=== PATIENT | male | born 1975 | race Two or more races ===

== ENCOUNTER 2020-12-28 13:27 | Emergency (ER) | payer SELFPAY ==
[~2020-12-28] VITALS: Ht 172.7 cm; Wt 90.9 kg
--- NOTE | 2020-12-28 14:46 | ED.ADGEN ---
General Adult EDM: Chief Complaint: ABDOMINAL PAIN HPI: HPI: Patient is a 45 year old male coming in for right lower quad abdominal pain starting yesterday. Patient states that pain has gotten stronger. Has had some nausea but no vomiting, and no appetite. Not eating since yesterday. Denies any diarrhea constipation. No urinary complaints. Denies any fevers or cough. Review of Systems: Review of Systems: All other systems within normal limits except for as noted in the HPI Current Medications: Current Medications Medications (Trade) Dose Ordered Sig/Swetha Start Time Stop Time Status Last Admin Dose Admin Fentanyl Citrate (Fentanyl 2ml Vial) 75 mcg 1X ONCE 12/28/20 15:00 12/28/20 15:01 DC 12/28/20 15:12 75 MCG Info (CONTRAST GIVEN -- Rx MONITORING) 1 each PRN DAILY PRN 12/28/20 15:15 12/30/20 15:14 Iohexol (Omnipaque 300 Mg/ml) 75 ml 1X ONCE 12/28/20 15:15 12/28/20 15:16 DC 12/28/20 15:22 75 ML Ondansetron HCl (Zofran) 4 mg 1X ONCE 12/28/20 15:00 12/28/20 15:01 DC 12/28/20 15:11 4 MG Allergies: Allergies: Allergies Coded Allergies Type Severity Reaction Last Updated Verified No Known Drug Allergies 12/28/20 No Physical Exam: PE: Constitutional: Well developed, well nourished, no acute distress, non-toxic appearance. [] HENT: Normocephalic, atraumatic, bilateral external ears normal, nose normal. [] Eyes: PERRLA, conjunctiva normal, no discharge. [] Neck: No rigidity, supple, no stridor. [] Cardiovascular: Regular rate and rhythm, brisk cap refill [] Lungs & Thorax: Non labored symmetric respirations, no tachypnea or respiratory distress [] Abdomen: Soft, nondistended. Skin: Warm, dry, no erythema, no rash. [] Back: Unremarkable Extremities: No deformities, range of motion grossly intact, no lower extremity edema [] Neurologic: Alert and oriented X 3, no focal deficits noted. [] Psychologic: Affect normal, judgement normal, mood normal. [] Current Patient Data: Labs: Laboratory Tests Test 12/28/20 13:35 12/28/20 14:55 Urine Collection Type Unknown Urine Color Yellow Urine Clarity Clear Urine pH 5.5 (<5.0-8.0) Urine Specific [place] >=1.030 (1.000-1.030) Urine Protein Negative mg/dL (NEG-TRACE) Urine Glucose (UA) Negative mg/dL (NEG) Urine Ketones (Stick) Negative mg/dL (NEG) Urine Blood Negative (NEG) Urine Nitrite Negative (NEG) Urine Bilirubin Small (NEG) Urine Urobilinogen Dipstick 0.2 mg/dL (0.2 mg/dL) Urine Leukocyte Esterase Negative (NEG) Urine RBC 0 /HPF (0-2) Urine WBC Occ /HPF (0-4) Urine Squamous Epithelial Cells Few /LPF Urine Bacteria Few /HPF (0-FEW) Urine Mucus Marked /LPF White Blood Count 8.3 x10^3/uL (4.0-11.0) Red Blood Count 4.71 x10^6/uL (4.30-5.70) Hemoglobin 15.6 g/dL (13.0-17.5) Hematocrit 45.0 % (39.0-53.0) Mean Corpuscular Volume 96 fL (79-100) Mean Corpuscular Hemoglobin 33 pg (25-35) Mean Corpuscular Hemoglobin Concent 35 g/dL (31-37) Red Cell Distribution Width 13.1 % (11.5-14.5) Platelet Count 220 x10^3/uL (140-400) Neutrophils (%) (Auto) 61 % (31-73) Lymphocytes (%) (Auto) 29 % (24-48) Monocytes (%) (Auto) 9 % (0-9) Eosinophils (%) (Auto) 1 % (0-3) Basophils (%) (Auto) 1 % (0-3) Neutrophils # (Auto) 5.0 x10^3/uL (1.8-7.7) Lymphocytes # (Auto) 2.4 x10^3/uL (1.0-4.8) Monocytes # (Auto) 0.7 x10^3/uL (0.0-1.1) Eosinophils # (Auto) 0.0 x10^3/uL (0.0-0.7) Basophils # (Auto) 0.1 x10^3/uL (0.0-0.2) Sodium Level 143 mmol/L (136-145) Potassium Level 3.7 mmol/L (3.5-5.1) Chloride Level 106 mmol/L (98-107) Carbon Dioxide Level 28 mmol/L (21-32) Anion Gap 9 (6-14) Blood Urea Nitrogen 7 mg/dL (8-26) L Creatinine 0.8 mg/dL (0.7-1.3) Estimated GFR (Cockcroft-Gault) 104.5 BUN/Creatinine Ratio 9 (6-20) Glucose Level 88 mg/dL (70-99) Calcium Level 8.8 mg/dL (8.5-10.1) Total Bilirubin 0.7 mg/dL (0.2-1.0) Aspartate Amino Transferase (AST) 26 U/L (15-37) Alanine Aminotransferase (ALT) 44 U/L (16-63) Alkaline Phosphatase 92 U/L (46-116) Total Protein 7.7 g/dL (6.4-8.2) Albumin 3.8 g/dL (3.4-5.0) Albumin/Globulin Ratio 1.0 (1.0-1.7) Lipase 39 U/L (73-393) L Laboratory Tests 12/28/20 14:55 Laboratory Tests 12/28/20 14:55 Vital Signs: Vital Signs Date Time Temp Pulse Resp B/P (MAP) Pulse Ox O2 Delivery O2 Flow Rate FiO2 12/28/20 15:12 16 96 Room Air 12/28/20 14:25 98.8 71 172/108 (129) 98.8 EKG: EKG: [] Heart Score: C/O Chest Pain: No Risk Factors: Risk Factors: DM, Current or recent (<one month) smoker, HTN, HLP, family history of CAD, obesity. Risk Scores: Score 0 - 3: 2.5% MACE over next 6 weeks - Discharge Home Score 4 - 6: 20.3% MACE over next 6 weeks - Admit for Clinical Observation Score 7 - 10: 72.7% MACE over next 6 weeks - Early Invasive Strategies Radiology/Procedures: Radiology/Procedures: [facility] [address] [place], [place] [id number] IMAGING REPORT Signed PATIENT: KATHE JENKINSACCOUNT: [id number] : 1975 LOCATION: ER AGE: 45 SEX: M EXAM STATUS: REG ER ORD. PHYSICIAN: ELIZABETH HUGHES MD REASON: RLQ pain PROCEDURE: CT ABD PELV W/ IV CONTRST ONLY INDICATION: Reason: RLQ pain / Spl. COMPARISON: None. TECHNIQUE: Axial CT images obtained through the abdomen and pelvis with contrast. One or more of the following individualized dose reduction techniques were utilized for this examination: 1. Automated exposure control; 2. Adjustment of the mA and/or kV according to patient size; 3. Use of iterative reconstruction technique. FINDINGS: Patchy groundglass opacities at lung bases which is commonly from atelectasis. Abdominal aorta is not aneurysmal. No intrahepatic bile duct dilation. Gallbladder is partially contracted. No peripancreatic fluid collection. There is edema to the fat at the left side of the mesentery. Spleen unremarkable. 19 mm exophytic low-density lesion at the left kidney. Subcentimeter low-density lesion of the left kidney which is too small to characterize. No hydronephrosis. Urinary bladder is partially distended with prominence of wall. No periappendiceal inflammatory changes. The appendix is not dilated. No dilated loops of bowel to suggest obstruction. Degenerative changes the spine with disc protrusions and osteophyte formation as well as facet hypertrophy. This contributes to multilevel central canal and neural foraminal stenosis. One year levels is at L4 and L5. IMPRESSION: * No evidence of appendicitis. * No dilated loops of bowel to suggest obstruction. * There is some nonspecific edema within the mesentery on the left. Nonspecific in nature with causes such as mesenteric panniculitis within the differential. * Degenerative changes of the spine with multiple disc protrusions as well as osteophyte formation. Electronically signed by: Desiree Coates MD (12/28/2020 3:53 PM) [id number] DICTATED and SIGNED BY: DESIREE COATES MD DATE: 12/28/20 [id number] [] Course & Med Decision Making: Course & Med Decision Making Pertinent Labs and Imaging studies reviewed. (See chart for details) [] Dragon Disclaimer: Dragclarita Disclaimer: This electronic medical record was generated, in whole or in part, using a voice recognition dictation system. Departure Departure Impression: Primary Impression: Mesenteric panniculitis Disposition: HOME / SELF CARE / HOMELESS Condition: STABLE Referrals: NO PCP (PCP) Patient Instructions: Abdominal Pain, Possible Early Appendicitis Scripts Naproxen (NAPROSYN) 500 Mg Tablet 1 TAB PO BID for 10 Days, #20 TAB Prov: ELIZABETH HUGHES MD 12/28/20 ELIZABETH HUGHES MD Dec 28, 2020 14:46
[2020-12-28 14:57] LABS: BILIRUBIN,URINE SMALL (NEG); CLARITY,URINE CLEAR; COLOR,URINE YELLOW; NITRITE,URINE NEGATIVE (NEG); PH,URINE 5.5 (<5.0-8.0); PROTEIN,URINE NEGATIVE (NEG-TRACE); UROBILINOGEN,URINE 0.2 mg/dL (0.2 mg/dL)
[2020-12-28] MEDS ORDERED: fentaNYL PF VIAL 100 MCG/2 ML VIAL IVP ONE (15:00)
[2020-12-28] MEDS ORDERED: ONDANSETRON PF 4 MG/2 ML VIAL. IVP ONE (15:00)
[2020-12-28 15:05] LABS: BASO # 0.1 x10^3/uL (0.0-0.2); BASO % 1 % (0-3); EOS % 1 % (0-3); HEMOGLOBIN 15.6 g/dL (13.0-17.5); LYMPH # 2.4 x10^3/uL (1.0-4.8); LYMPH % 29 % (24-48); MEAN CORPUSCULAR HEMOGLOBIN 33 pg (25-35); MEAN CORPUSCULAR HGB CONC 35 g/dL (31-37); MEAN CORPUSCULAR VOLUME 96 fL (79-100); MONO # 0.7 x10^3/uL (0.0-1.1); MONO % 9 % (0-9); NEUT % 61 % (31-73); PLATELET COUNT 220 x10^3/uL (140-400); RED BLOOD COUNT 4.71 x10^6/uL (4.30-5.70); RED CELL DISTRIBUTION WIDTH 13.1 % (11.5-14.5); WHITE BLOOD COUNT 8.3 x10^3/uL (4.0-11.0)
[2020-12-28 15:10] LABS: CALCIUM 8.8 mg/dL (8.5-10.1); CREATININE 0.8 mg/dL (0.7-1.3); GFR 104.5; POTASSIUM 3.7 mmol/L (3.5-5.1)
[2020-12-28] MEDS ORDERED: IOHEXOL 300 MG/ML 100ML VIAL. IV ONE (15:15)
[2020-12-28] MEDS ORDERED: CONTRAST GIVEN. MC PRN (15:15)
[2020-12-28 15:16] LABS: ALBUMIN 3.8 g/dL (3.4-5.0); TOTAL BILIRUBIN 0.7 mg/dL (0.2-1.0); TOTAL PROTEIN 7.7 g/dL (6.4-8.2)
[2020-12-28 15:25] LABS: RBC,URINE 0 /HPF (0-2); WBC,URINE OCC /HPF (0-4)
[2020-12-28 15:26] LABS: BACTERIA,URINE FEW /HPF (0-FEW)
--- NOTE | 2020-12-28 15:56 | RAD ---
INDICATION: Reason: RLQ pain / Spl. COMPARISON: None. TECHNIQUE: Axial CT images obtained through the abdomen and pelvis with contrast. One or more of the following individualized dose reduction techniques were utilized for this examinat ion: 1. Automated exposure control; 2. Adjustment of the mA and/or kV according to patient size; 3 . Use of iterative reconstruction technique. FINDINGS: Patchy groundglass opacities at lung bases which is commonly from atelectasis. Abdominal aorta is not aneurysmal. No intrahepatic bile duct dilation. Gallbladder is partially contracted. No peripancreatic fluid collection. There is edema to the fat at the left side of the mesentery. Spleen unremarkable. 19 mm exophytic low-density lesion at the left kidney. Subcentimeter low-density lesion of the left kidney which is too small to characterize. No hydronephrosis. Urinary bladder is partially distended with prominence of wall. No periappendiceal inflammatory changes. The appendix is not dilated. No dilated loops of bowel to suggest obstruction. Degenerative changes the spine with disc protrusions and osteophyte formation as well as facet hyper trophy. This contributes to multilevel central canal and neural foraminal stenosis. One year levels i s at L4 and L5. IMPRESSION: * No evidence of appendicitis. * No dilated loops of bowel to suggest obstruction. * There is some nonspecific edema within the mesentery on the left. Nonspecific in nature with cause s such as mesenteric panniculitis within the differential. * Degenerative changes of the spine with multiple disc protrusions as well as osteophyte formation. Electronically signed by: Cortez Sylvester MD (12/28/2020 3:53 PM) [id number]
[2020-12-28] MEDS ORDERED: NAPR-683 PO (16:13)
[2020-12-28 16:55] VITALS: BP 153/82
== END 2020-12-28 17:22 | disposition home or self-care (01) ==
LOC: ER 13:27
DX: K65.4 Sclerosing mesenteritis (principal)
CPT/HCPCS: 36415; 74177; 80053; 81001; 83690; 85025; 96374; 96375; 99285; J2405; J3010; Q9967